=== PATIENT | female | born 1970 | race American Indian/Alaskan Native ===

== ENCOUNTER 2017-03-21 22:52 | Emergency (ER) | payer MEDICAID ==
[2017-03-21 23:32] VITALS: BP 137/82; TEMP 98.7; O2SAT 98
[2017-03-22] MEDS ORDERED: (Novolog Mix 70/30) Insulin Aspart/Insulin Aspar 100 units/ml SC ONE (00:11)
--- NOTE | 2017-03-22 00:14 | C.PDOC ---
History Of Present Illness A 46 year old female, with a history of Insulin Dependent Diabetes, presents to the emergency room for a request to administer Insulin. Patient reports that she was visiting her in the ICU and was going to administer her Novolog 70/30 20 units, but the needle broke and she did not have another needle to attach to the Novolog pen. Patient denies any fever, chills, abdominal pain, nausea, vomiting, diarrhea, or any other complaints. Time Seen by Provider: 03/21/17 23:44 Chief Complaint (Nursing): Medical Clearance History Per: Patient History/Exam Limitations: no limitations Onset/Duration Of Symptoms: Hrs Current Symptoms Are (Timing): Still Present Severity: None Recent travel outside of the [place]: No Past Medical History Reviewed: Historical Data, Nursing Documentation, Vital Signs Vital Signs: Last Vital Signs Temp 98.7 F 03/21/17 23:24 Pulse 88 03/22/17 00:05 Resp 18 03/22/17 00:05 BP 137/82 03/21/17 23:24 Pulse Ox 98 03/22/17 01:53 - Medical History PMH: Asthma, Gastritis Denies: HTN (denies) Family History: States: CAD, Diabetes, Hypertension - Social History Hx Tobacco Use: No Hx Alcohol Use: No Hx Substance Use: No - Immunization History Hx Tetanus Toxoid Vaccination: No Hx Influenza Vaccination: No Hx Pneumococcal Vaccination: No Review Of Systems Except As Marked, All Systems Reviewed And Found Negative. Constitutional: Positive for: Other (Requesting Insulin administration). Negative for: Fever, Chills Gastrointestinal: Negative for: Nausea, Vomiting, Abdominal Pain, Diarrhea Physical Exam - Physical Exam Appears: Well, Non-toxic Skin: Normal Color, Warm, Dry Head: Atraumatic, Normacephalic Eye(s): bilateral: Normal Inspection, PERRL, EOMI Neck: Normal ROM, No Midline Cervical Tenderness, No Paracervical Tenderness, Supple Cardiovascular: Rhythm Regular Respiratory: Normal Breath Sounds, No Rales, No Rhonchi, No Wheezing Gastrointestinal/Abdominal: Soft, No Tenderness, No Guarding, No Rebound Extremity: Normal ROM, No Tenderness Neurological/Psych: Oriented x3, Normal Speech, Normal Cognition ED Course And Treatment O2 Sat by Pulse Oximetry: 98 Medical Decision Making Medical Decision Making: Impression: 46 yo F with h/o IDDM, requesting for a dose of her insulin novolog 70/30 20 units, otherwise has no other complaints. FS 150. No acute findings on PE. Plan: Novolog 70/30 20 units SC given. Progress Notes: Follow up with pmd in 2 days. Return to the ER at any time for any new or worsening symptoms. Disposition - Disposition Disposition: HOME/ ROUTINE Disposition Time: 00:13 Condition: GOOD Additional Instructions: Follow up with pmd in 2 days. Return to the ER at any time for any new or worsening symptoms. Instructions: Insulin Aspart Protamine/Insulin Aspart (By injection) Print Language: TURKMEN - Clinical Impression Clinical Impression: DM (diabetes mellitus), type 2, Medication administered - PA / EMERGENCY MANAGEMENT DIRECTOR / Resident Statement MD/DO has reviewed & agrees with the documentation as recorded. - Scribe Statement The provider has reviewed the documentation as recorded by the Wei Lora Provider Scribe Attestation: All medical record entries made by the Cassibayad were at my direction and personally dictated by me. I have reviewed the chart and agree that the record accurately reflects my personal performance of the history, physical exam, medical decision making, and the department course for this patient. I have also personally directed, reviewed, and agree with the discharge instructions and disposition.
[2017-03-22] MEDS ORDERED: (Novolin 70/30) NPH/Regular 70/30 Units/ml 10 ml vial SC ONE (00:32)
[2017-03-22 00:43] VITALS: PULSE 88; RESP 18
== END 2017-03-22 00:42 | disposition home or self-care (01) ==
LOC: C.ER 22:52
DX: E11.9 Type 2 diabetes mellitus without complications (principal); Z79.4 Long term (current) use of insulin

== ENCOUNTER 2017-03-22 07:51 | Observation (INO) | payer MEDICAID ==
[2017-03-22 08:01] VITALS: BMI 37.1
[2017-03-22 08:02] VITALS: TEMP 98.4
--- NOTE | 2017-03-22 08:34 | C.PDOC ---
History Of Present Illness 46-year-old female, PMHx includes Gastritis and Asthma, presents to the emergency department with complaints of chest pain x1 hr. Patient states onset was "during a stressful event" while she was visiting someone in ICU. Pain is constant and localized. Denies other associated symptoms. Seen last night for Insulin dosing. Patient states she had a similar chest pain episode "many years ago." No known Hx of CAD. MIDSTERNAL CP X 1 HR. PS ONSET "DURING STRESSFUL EVENT" WHILE VISITING SOMEONE IN ICU. CONSTANT LOCALIZED. DENIES OTHER ASSOC SX. SEEN LAST NIGHT FOR INSULIN DOSING. PS SIM CP EPISODE "MANY YEARS AGO", NO KNOW HO CAD. EXAM MILD DIST LUNGS NEG ABD NEG PSYCH CRYING BUT CONSOLABLE, NO ACTIVE PSYCHOSIS, SI/SA MDM PT DOES NOT WISH ANY MEDS @ THIS TIME. RO ACS, ED OBS Chief Complaint (Nursing): Chest Pain Past Medical History Reviewed: Historical Data, Nursing Documentation, Vital Signs Vital Signs: Last Vital Signs Temp 98.4 F 03/22/17 08:01 Pulse 89 03/22/17 11:22 Resp 18 03/22/17 11:22 BP 109/55 L 03/22/17 11:22 Pulse Ox 92 L 03/22/17 11:22 - Medical History PMH: Asthma, Gastritis Denies: HTN (denies) Family History: States: CAD, Diabetes, Hypertension - Social History Hx Tobacco Use: No Hx Alcohol Use: No Hx Substance Use: No - Immunization History Hx Tetanus Toxoid Vaccination: Yes Hx Influenza Vaccination: No Hx Pneumococcal Vaccination: No Review Of Systems Except As Marked, All Systems Reviewed And Found Negative. Constitutional: Negative for: Fever, Chills Cardiovascular: Positive for: Chest Pain. Negative for: Palpitations, Orthopnea , Edema Respiratory: Negative for: Shortness of Breath Gastrointestinal: Negative for: Nausea, Vomiting Musculoskeletal: Negative for: Back Pain Skin: Negative for: Rash Neurological: Negative for: Weakness, Numbness, Headache, Dizziness Physical Exam - Physical Exam Appears: Non-toxic, No Acute Distress Skin: Warm, Dry, No Rash Head: Atraumatic, Normacephalic Eye(s): bilateral: Normal Inspection, PERRL Nose: Normal Oral Mucosa: Moist Lips: Normal Appearing Neck: Normal ROM Chest: Symmetrical Cardiovascular: Rhythm Regular Respiratory: Normal Breath Sounds, No Accessory Muscle Use Extremity: Normal ROM Neurological/Psych: Oriented x3, Normal Speech, Other (CRYING BUT CONSOLABLE, NO ACTIVE PSYCHOSIS, SI/SA) ED Course And Treatment - Laboratory Results Result Diagrams: 03/22/17 08:46 03/22/17 08:46 ECG: Interpreted By Me ECG Rhythm: Sinus Rhythm ECG Interpretation: Normal Rate From EC O2 Sat by Pulse Oximetry: 100 Pulse Ox Interpretation: Normal Progress - Data Reviewed Data Reviewed: Lab, Diagnostic imaging, EKG, Old records - Continuity of Care Discussed patient case with:: Patient Medical Decision Making Medical Decision Making: Impression Chest pain. Patient was offered medication and she is refusing at this time. Diff Dx (includes but not limited to) ACS Plan: * EKG * BMP, Trop I * CBC * Chest X-Ray * Nitro, Tylenol * Reassess and Disposition ED OBSERVATION Discharge: Yes Date of observation admission: 03/22/17 Time of observation admission: 08:15 - Observation admission statement Patient is being placed in observation because:: chest PAIN; STRESS REACTION - Goals of Observation Goals of observation are:: NEG ACS, SX IMPROVE - Progress Note Progress Note: 03/22/17 10:10 SX IMPROVED. PS CARDI[place] 5 [place] [facility] [place] REPEAT [place], CONT OBS. PT AGREES W PLAN 03/22/17 13:12 APPEARS COMFORTABLE ASYMPT. NAD VSS. TROP NEG X 2. ADVISED FU W PMD FOR CARDIAC FU. Disposition Counseled Patient/Family Regarding: Studies Performed, Diagnosis, Need For Followup - Disposition Disposition: HOME/ ROUTINE Disposition Time: 13:14 Condition: IMPROVED - Clinical Impression Clinical Impression: Chest pain, Stress reaction - Scribe Statement The provider has reviewed the documentation as recorded by the Wei Tolbert All medical record entries made by the Cassibayad were at my direction and personally dictated by me. I have reviewed the chart and agree that the record accurately reflects my personal performance of the history, physical exam, medical decision making, and the department course for this patient. I have also personally directed, reviewed, and agree with the discharge instructions and disposition.
[2017-03-22] MEDS ORDERED: Nitroglycerin 2% Ointment Foilpak UD TOP STA (08:39)
[2017-03-22] MEDS ORDERED: Nitroglycerin 2% Ointment Foilpak UD TOP ONE (08:49)
[2017-03-22] MEDS ORDERED: Aspirin 325 mg EC Tablets PO ONE (08:49)
[2017-03-22 08:53] LABS: BASO # 0.1 K/uL (0.0-0.2); BASO % 0.9 % (0.0-2.0); EOS % 0.4 % (0.0-4.0); HEMATOCRIT 34.5 % (34.0-47.0); LYMPH # 1.2 K/uL (1.0-4.3); MEAN CELL VOLUME 71.5 fL (81.0-99.0); MEAN CORPUSCULAR HEMOGLOBIN 22.7 pg (27.0-31.0); MEAN CORPUSCULAR HGB CONC 31.8 g/dL (33.0-37.0); MEAN PLATELET VOLUME 8.9 fL (7.2-11.7); MONO # 0.6 K/uL (0.0-0.8); MONO % 6.2 % (0.0-10.0); RED CELL DISTRIBUTION WIDTH 17.7 % (11.5-14.5); WHITE BLOOD COUNT 9.6 K/uL (4.8-10.8)
[2017-03-22 09:18] LABS: CHLORIDE 99 mmol/L (98-107); SODIUM 136 mmol/L (132-148)
[2017-03-22 09:19] LABS: POTASSIUM 3.6 mmol/L (3.6-5.2)
[2017-03-22 09:21] LABS: GFR AFRICAN-AMERICAN > 60
[2017-03-22 09:22] LABS: BLOOD UREA NITROGEN 10 mg/dL (7-17); CALCIUM 8.5 mg/dl (8.6-10.4); CARBON DIOXIDE 24 mmol/L (22-30); GLUCOSE,RANDOM 102 mg/dL (65-105)
--- NOTE | 2017-03-22 09:58 | RAD ---
HISTORY: chest pain COMPARISON: 04/18/2015 TECHNIQUE: Chest PA and lateral FINDINGS: LUNGS: No focal airspace opacity. PLEURA: No significant pleural effusion identified. No pneumothorax apparent. CARDIOVASCULAR: Normal. OSSEOUS STRUCTURES: No significant abnormalities. VISUALIZED UPPER ABDOMEN: Normal. OTHER FINDINGS: None. IMPRESSION: No focal airspace opacity.
[2017-03-22 13:21] VITALS: BP 112/68; PULSE 92; RESP 17; O2SAT 96
--- NOTE | 2017-03-25 11:52 | CARD ---
APPROVED REPORT EKG Measurement Heart [id number] <Conclusion> Normal sinus rhythm Low voltage QRS Poor R wave progression. It appears to be positional. Borderline EKG
== END 2017-03-22 13:15 | disposition home or self-care (01) ==
LOC: C.ER 07:51 → C.9OBSV 08:15
PROVIDERS: ADMIT Emergency Medicine; ATTEND Emergency Medicine
DX: R07.9 Chest pain, unspecified (principal); F43.9 Reaction to severe stress, unspecified
CPT/HCPCS: 71020; 80048; 82948; 84484; 85025; 99285; G0378

== ENCOUNTER 2017-04-22 09:28 | Emergency (ER) | payer MEDICAID ==
[2017-04-22 09:28] VITALS: BMI 37.1
[2017-04-22 09:50] VITALS: RESP 18
--- NOTE | 2017-04-22 10:34 | C.PDOC ---
History Of Present Illness 46 y/o F c history of childhood chicken pox p/w pain from the L sided abdomen to the L lower back that began yesterday. She reports the pain as burning, tingling, and itchy. She then notes that this morning, a rash broke out in the area of pain in the back. She denies fever, chills, vomiting, dysuria, dyspnea. Time Seen by Provider: 04/22/17 10:20 Chief Complaint (Nursing): Back Pain Past Medical History Vital Signs: Last Vital Signs Temp 98 F 04/22/17 09:46 Pulse 98 H 04/22/17 09:46 Resp 18 04/22/17 09:46 BP 130/78 04/22/17 09:46 Pulse Ox 96 04/22/17 09:46 - Medical History PMH: Asthma, Gastritis Denies: HTN (denies) Family History: States: CAD, Diabetes, Hypertension - Social History Hx Tobacco Use: No Hx Alcohol Use: No Hx Substance Use: No - Immunization History Hx Tetanus Toxoid Vaccination: Yes Hx Influenza Vaccination: No Hx Pneumococcal Vaccination: No Review Of Systems Except As Marked, All Systems Reviewed And Found Negative. Constitutional: Negative for: Fever Respiratory: Negative for: Shortness of Breath Physical Exam - Physical Exam Appears: Non-toxic Skin: Rash (clusters of vesicles on L sided back not crossing midline. No areas of rash on body.) Head: Normacephalic Respiratory: No Accessory Muscle Use Gastrointestinal/Abdominal: Soft, No Tenderness, No Distention, No Guarding, No Rebound Back: No CVA Tenderness Extremity: No Tenderness, No Swelling Pulses: Left Radial: Normal, Right Radial: Normal Neurological/Psych: Normal Speech, Normal Cognition ED Course And Treatment O2 Sat by Pulse Oximetry: 96 Medical Decision Making Medical Decision Making: History and physical consistent with herpes zoster infection. Will start on antivirals. Advised pain medication. Instructed to follow up with primary care physician for further monitoring and treatment. Instructed to return to the ER for any new rash in other dermatomes especially on face. No vesicles noted on nose, around eyes, or ears currently. Disposition - Disposition Referrals: Manpreet Gary, VICTORIANO, ORTHOPEDIC NURSE PRACTITIONER [Advanced Practice Nurse] - Disposition: HOME/ ROUTINE Disposition Time: 10:34 Condition: STABLE Prescriptions: Acyclovir [Zovirax] 800 mg PO 5XD #34 tab Ibuprofen [Motrin] 600 mg PO Q6 #25 tab Instructions: Shingles (ED) Forms: Work Excuse - Clinical Impression Clinical Impression: Shingles
[2017-04-22 10:43] LABS: RBC URINE 1 /hpf (0-3); URINE BILIRUBIN NEGATIVE (NEGATIVE); URINE BLOOD NEGATIVE (NEGATIVE); URINE COLOR Yellow (YELLOW); URINE GLUCOSE (UA) NORMAL (Normal); URINE KETONE NEGATIVE (NEGATIVE); URINE LEUKOCYTE ESTERASE NEG Leu/uL (Negative); URINE PROTEIN 1+ mg/dL (NEGATIVE); URINE UROBILINOGEN NORMAL mg/dL (0.2-1.0); WBC URINE 1 /hpf (0-5)
[2017-04-22 11:14] VITALS: BP 131/79; PULSE 95; TEMP 97.7; O2SAT 98
== END 2017-04-22 11:14 | disposition home or self-care (01) ==
LOC: C.ER 09:28
DX: B02.9 Zoster without complications (principal)
CPT/HCPCS: 81001; 84703; 96372; 99284; J1885

== ENCOUNTER 2017-06-28 10:27 | Observation (INO) | payer MEDICAID ==
[2017-06-28 10:28] VITALS: BMI 37.1
[2017-06-28 11:16] LABS: RBC URINE 1 /hpf (0-3); URINE BILIRUBIN NEGATIVE (NEGATIVE); URINE BLOOD 2+ (NEGATIVE); URINE COLOR Yellow (YELLOW); URINE GLUCOSE (UA) NORMAL (Normal); URINE KETONE NEGATIVE (NEGATIVE); URINE LEUKOCYTE ESTERASE NEG Leu/uL (Negative); URINE PROTEIN 1+ mg/dL (NEGATIVE); URINE UROBILINOGEN NORMAL mg/dL (0.2-1.0); WBC URINE 1 /hpf (0-5)
[2017-06-28 11:47] LABS: BASO # 0.1 K/uL (0.0-0.2); EOS # 0.2 K/uL (0.0-0.7); EOS % 2.5 % (0.0-4.0); HEMATOCRIT 34.9 % (34.0-47.0); LYMPH # 1.1 K/uL (1.0-4.3); LYMPH % 16.6 % (20.0-40.0); MEAN CORPUSCULAR HEMOGLOBIN 23.1 pg (27.0-31.0); MEAN PLATELET VOLUME 8.4 fL (7.2-11.7); MONO # 0.5 K/uL (0.0-0.8); MONO % 6.9 % (0.0-10.0); RED CELL DISTRIBUTION WIDTH 18.4 % (11.5-14.5); WHITE BLOOD COUNT 6.5 K/uL (4.8-10.8)
[2017-06-28 11:48] LABS: MEAN CELL VOLUME 74.6 fL (81.0-99.0)
[2017-06-28 12:00] LABS: CHLORIDE 97 mmol/L (98-107); SODIUM 138 mmol/L (132-148)
[2017-06-28 12:01] LABS: POTASSIUM 3.9 mmol/L (3.6-5.2)
[2017-06-28 12:03] LABS: ALB/GLOB RATIO 1.1 (1.0-2.1); ALKALINE PHOSPHATASE 76 U/L (38-126); ALT/SGPT 29 U/L (9-52); AST/SGOT 21 U/L (14-36); BILIRUBIN,TOTAL 0.4 mg/dL (0.2-1.3); BLOOD UREA NITROGEN 9 mg/dL (7-17); CARBON DIOXIDE 27 mmol/L (22-30); GFR AFRICAN-AMERICAN > 60
[2017-06-28 12:04] LABS: CALCIUM 8.1 mg/dl (8.6-10.4); GLUCOSE,RANDOM 142 mg/dL (65-105)
--- NOTE | 2017-06-28 12:05 | C.PDOC ---
History Of Present Illness 47 y/o female with dm, recent shingles, c/o left sided flank pain from waking this morning, that feels similar to pain she had recently with shingles. pt also sts she felt dizzy, described as things spinning in room that feels worse when lying down, but better when sitting up. no prior hx of vertigo. pt with diffuse frontal headache, no ear pain. pt reports intermittent chest pressure , had some earlier today, but none at moment; pt denies sob, fever, chills, cough, blurred vision. nausea and vomiting. pt sts she just doesn't feel right. Time Seen by Provider: 06/28/17 11:14 Chief Complaint (Nursing): Headache History Per: Patient History/Exam Limitations: no limitations Onset/Duration Of Symptoms: Hrs Current Symptoms Are (Timing): Still Present Recent travel outside of the [place]: No Additional History Per: Patient Past Medical History Reviewed: Historical Data, Nursing Documentation, Vital Signs Vital Signs: Last Vital Signs Temp 98.4 F 06/28/17 14:00 Pulse 85 06/28/17 14:00 Resp 16 06/28/17 14:00 BP 112/72 06/28/17 14:00 Pulse Ox 99 06/28/17 15:45 - Medical History PMH: Asthma, Diabetes, Gastritis, HTN Family History: States: CAD, Diabetes, Hypertension - Social History Hx Tobacco Use: No Hx Alcohol Use: No Hx Substance Use: No - Immunization History Hx Tetanus Toxoid Vaccination: Yes Hx Influenza Vaccination: No Hx Pneumococcal Vaccination: No Review Of Systems Constitutional: Negative for: Fever, Chills Eyes: Negative for: Vision Change ENT: Negative for: Ear Pain Cardiovascular: Positive for: Chest Pain (chest pressure). Negative for: Palpitations Respiratory: Negative for: Cough, Shortness of Breath Gastrointestinal: Negative for: Nausea, Vomiting Musculoskeletal: Positive for: Back Pain (left flank) Neurological: Positive for: Headache, Dizziness Physical Exam - Physical Exam Appears: Well, Non-toxic, No Acute Distress Skin: Normal Color, Warm, Dry Head: Atraumatic, Normacephalic Eye(s): bilateral: Normal Inspection, Other (no nystagmus) Ear(s): Bilateral: Normal Neck: Normal ROM, Supple Chest: Symmetrical Cardiovascular: Rhythm Regular, No Murmur Respiratory: Normal Breath Sounds, No Accessory Muscle Use, No Rales, No Rhonchi , No Wheezing Gastrointestinal/Abdominal: Soft, No Tenderness Back: Normal Inspection Extremity: Normal ROM Neurological/Psych: Oriented x3, Normal Speech, Normal Cognition, Normal Cranial Nerves, Normal Motor, Normal Sensation, Other (neuro intact) Gait: Unsteady ED Course And Treatment - Laboratory Results Result Diagrams: 06/28/17 11:40 06/28/17 11:40 Urine POC: Negative ECG Rhythm: Sinus Rhythm (NSR 87 bpm. Left axis deviation ) Interpretation Of ECG: nsr, left axis deviation,m possible anterolateral infarct , age undetermined. Rate From EC O2 Sat by Pulse Oximetry: 99 (RA) Pulse Ox Interpretation: Normal - CT Scan/US Head CT Other Rad Studies (CT/US): Read By Radiologist, Radiology Report Reviewed CT/US Interpretation: FINDINGS: HEMORRHAGE: No intracranial hemorrhage. BRAIN : No mass effect or edema. Bilateral basal ganglia calcifications. No atrophy or chronic microvascular ischemic changes.Please note that MRI with diffusion imaging is more sensitive in the detection of acute ischemic event. VENTRICLES : No hydrocephalus. CALVARIUM: Unremarkable. PARANASAL SINUSES: Unremarkable as visualized. No significant inflammatory changes. MASTOID AIR CELLS: Unremarkable as visualized. No inflammatory changes. OTHER FINDINGS: None. IMPRESSION: No acute intracranial pathology identified. Progress Note: EKG, head CT, blood work, urinalysis ordered and reviewed. Pt was given Antivert, and Tylenol. Reevaluation Time: 15:43 (pt still not feeling well, says she feels like osmething is wrong; will be admotted for persistent vertigo. ) Reassessment Condition: Unchanged Medical Decision Making Medical Decision Making: pt feeling somewhat better after meclizine, still c/o headaceh. motrin ordered. will re-eval. Disposition Discussed With : Tyshawn Justice Doctor Will See Patient In The: Hospital - Disposition Disposition Time: 15:45 Condition: STABLE Forms: [facility] (Omani) - Clinical Impression Clinical Impression: Vertigo, Headache - PA / WOOD SETTER / Resident Statement MD/DO has reviewed & agrees with the documentation as recorded. - Scribe Statement The provider has reviewed the documentation as recorded by the Cassibe Jerzy Rangel All medical record entries made by the Scribe were at my direction and personally dictated by me. I have reviewed the chart and agree that the record accurately reflects my personal performance of the history, physical exam, medical decision making, and the department course for this patient. I have also personally directed, reviewed, and agree with the discharge instructions and disposition. Decision To Admit - Pt Status Changed To: Hospital Disposition Of: Observation - . Bed Request Type: Regular Admitting Physician: Tyshawn Justice Patient Diagnosis: Vertigo, Headache
--- NOTE | 2017-06-28 12:33 | CT ---
PROCEDURE: CT HEAD WITHOUT CONTRAST. HISTORY: headache and dizzy COMPARISON: None available. TECHNIQUE: Axial computed tomography images were obtained through the head/brain without intravenous contrast. Radiation dose: Total exam DLP = 906.00 mGy-cm. This CT exam was performed using one or more of the following dose reduction techniques: Automated exposure control, adjustment of the mA and/or kV according to patient size, and/or use of iterative reconstruction technique. FINDINGS: HEMORRHAGE: No intracranial hemorrhage. BRAIN: No mass effect or edema. Bilateral basal ganglia calcifications. No atrophy or chronic microvascular ischemic changes.Please note that MRI with diffusion imaging is more sensitive in the detection of acute ischemic event. VENTRICLES: No hydrocephalus. CALVARIUM: Unremarkable. PARANASAL SINUSES: Unremarkable as visualized. No significant inflammatory changes. MASTOID AIR CELLS: Unremarkable as visualized. No inflammatory changes. OTHER FINDINGS: None. IMPRESSION: No acute intracranial pathology identified.
[2017-06-28] MEDS ORDERED: Sodium Chloride 0.9% 500 ML IV ONE ×2 (13:50→14:01)
[2017-06-28 19:53] VITALS: RESP 20
[2017-06-28] MEDS: (Novolog Mix 70/30) Insulin Aspart/Insulin Aspar 100 units/ml SC SCH (20:06)
[2017-06-28] MEDS: (Novolog) Insulin Aspart, Recombinant 100 u/ml 10 ml vial SC SCH (22:20)
--- NOTE | 2017-06-28 23:57 | CP.PCM.HP ---
History of Present Illness - History of Present Illness History of Present Illness: CC: dizziness HPI: 47 y/o morbidly female with dm on insulin, recent shingles, c/o left sided flank pain from waking this morning, that feels similar to pain she had recently with shingles. pt also sts she felt dizzy, described as things spinning in room that feels worse when lying down, but better when sitting up. no prior hx of vertigo. pt with diffuse frontal headache, no ear pain. pt reports intermittent chest pressure, had some earlier today, but none at moment ; pt denies sob, fever, chills, cough, blurred vision. nausea and vomiting. pt sts she just doesn't feel right. Present on Admission - Present on Admission Any Indicators Present on Admission: Yes Review of Systems - Review of Systems Systems not reviewed;Unavailable: Acuity of Condition - Constitutional Constitutional: Fatigue, Lethargy - EENT Ears: Disequilibrium, Dizziness Nose/Mouth/Throat: absent: As Per HPI, Epistaxis, Nasal Congestion, Nasal Discharge, Nasal Obstruction, Nasal Trauma, Nose Pain, Post Nasal Drip, Sinus Pain, Sinus Pressure, Bleeding Gums, Change in Voice, Dental Pain, Dry Mouth, Dysphagia, Halitosis, Hoarsness, Lip Swelling, Mouth Lesions, Mouth Pain, Odynophagia, Sore Throat, Throat Swelling, Tongue Swelling, Facial Pain, Neck Pain, Neck Mass, Other - Cardiovascular Cardiovascular: absent: As Per HPI, Acrocyanosis, Chest Pain, Chest Pain at Rest , Chest Pain with Activity, Claudication, Diaphoresis, Dyspnea, Dyspnea on Exertion, Edema, Irregular Heart Rhythm, Pain Radiating to Arm/Neck/Jaw, Leg Edema, Leg Ulcers, Lightheadedness, Orthopnea, Palpitations, Paroxysmal Nocturnal Dyspnea, Pedal Edema, Radiating Pain, Rapid Heart Rate, Slow Heart Rate, Syncope, Other - Respiratory Respiratory: absent: As Per HPI, Cough, Dyspnea, Hemoptysis, Dyspnea on Exertion , Wheezing, Snoring, Stridor, Pain on Inspiration, Chest Congestion, Excessive Mucous Production, Change in Mucous Color, Pain with Coughing, Other - Gastrointestinal Gastrointestinal: absent: As Per HPI, Abdominal Pain, Belching, Bloating, Change in Bowel Habits, Change in Stool Character, Coffee Ground Emesis, Constipation, Cramping, Diarrhea, Dyspepsia, Dysphagia, Early Satiety, Excessive Flatus, Fecal Incontinence, Heartburn, Hematemesis, Hematochezia, Loose Stools, Melena, Nausea, Odynophagia, Temesmus, Vomiting, Other - Genitourinary Genitourinary: absent: As Per HPI, Change in Urinary Stream, Difficulty Urinating, Dysuria, Flank Pain, Hematuria, Pyuria, Nocturia, Urinary Incontinence, Urinary Frequency, Urinary Hesitance, Urinary Urgency, Voiding Freq/Small Amts, Freq UTI, Hx Renal/Bladder Calculi, Hx /Renal Surgery, Bladder Distension, Other Past Patient History - Infectious Disease Hx of Infectious Diseases: None - Past Medical History & Family History Past Medical History?: Yes - Past Social History Smoking Status: Former Smoker - CARDIAC Hx Cardiac Disorders: No - PULMONARY Hx Respiratory Disorders: Yes Hx Asthma: Yes - NEUROLOGICAL Hx Neurological Disorder: Yes Hx Dizziness: Yes - HEENT Hx HEENT Problems: Yes Other/Comment: left eye retinal problem - RENAL Hx Chronic Kidney Disease: No - ENDOCRINE/METABOLIC Hx Endocrine Disorders: Yes Hx Diabetes Mellitus Type 1: Yes - HEMATOLOGICAL/ONCOLOGICAL Hx Blood Disorders: Yes Hx Blood Transfusions: Yes Hx Blood Transfusion Reaction: No Hx Shingles: Yes - INTEGUMENTARY Hx Dermatological Problems: No - MUSCULOSKELETAL/RHEUMATOLOGICAL Hx Falls: No - GASTROINTESTINAL Hx Gastrointestinal Disorders: Yes Hx Gastritis: Yes - GENITOURINARY/GYNECOLOGICAL Hx Genitourinary Disorders: No - PSYCHIATRIC Hx Substance Use: No - SURGICAL HISTORY Hx Surgeries: Yes Other/Comment: ectopic with surgery, left eye surgery - ANESTHESIA Hx Anesthesia: Yes Hx Anesthesia Reactions: No Hx Malignant Hyperthermia: No Meds Allergies/Adverse Reactions: Allergies Allergy/AdvReac Type Severity Reaction Status Date / Time Penicillins Allergy RASH Verified 03/22/17 07:59 Physical Exam - Constitutional Appears: No Acute Distress - Head Exam Head Exam: ATRAUMATIC, NORMAL INSPECTION, NORMOCEPHALIC - Eye Exam Eye Exam: EOMI, Normal appearance, PERRL. absent: Conjunctival injection, Nystagmus, Periorbital swelling, Periorbital tenderness, Scleral icterus Pupil Exam: NORMAL ACCOMODATION, PERRL - ENT Exam ENT Exam: Mucous Membranes Moist, Normal Exam - Respiratory Exam Respiratory Exam: Clear to Auscultation Bilateral, NORMAL BREATHING PATTERN - Cardiovascular Exam Cardiovascular Exam: REGULAR RHYTHM - GI/Abdominal Exam GI & Abdominal Exam: Normal Bowel Sounds, Soft. absent: Tenderness Results - Vital Signs Recent Vital Signs: Last Vital Signs Temp 98 F 06/28/17 18:45 Pulse 81 06/28/17 18:45 Resp 20 06/28/17 18:45 BP 110/67 06/28/17 18:45 Pulse Ox 96 06/28/17 18:45 - Labs Result Diagrams: 06/28/17 11:40 06/28/17 11:40 Labs: Laboratory Results - last 24 hr 06/28/17 06/28/17 18:24 21:32 POC Glucose (mg/dL) 146 H 181 H Assessment & Plan (1) Dizziness and giddiness Status: Acute (2) Vertigo Assessment and Plan: most likeley BPV[facility] neuro eval Status: Acute
[2017-06-29] MEDS: (Novolog) Insulin Aspart, Recombinant 100 u/ml 10 ml vial SC SCH ×4 (07:54→22:24)
[2017-06-29 08:08] LABS: CHOLESTEROL 178 mg/dL (0-199)
[2017-06-29] MEDS: (Novolog Mix 70/30) Insulin Aspart/Insulin Aspar 100 units/ml SC SCH ×2 (11:50→18:06)
--- NOTE | 2017-06-29 11:59 | MRI ---
PROCEDURE: MRI BRAIN WITHOUT CONTRAST HISTORY: CVA COMPARISON: Noncontrast head CT from 06/28/2017 TECHNIQUE: Multiplanar, multisequence MR images of the brain were obtained without intravenous contrast enhancement. FINDINGS: HEMORRHAGE: None DWI: No evidence of an acute or early subacute infarction. BRAIN PARENCHYMA: Nuñez-white matter differentiation is preserved. There is no mass, mass effect or abnormal extra-axial fluid collection. There is no territorial infarction. The midline sagittal structures are normal. VENTRICLES: The ventricles are normal in size, shape and configuration. CRANIUM: There is normal bone marrow signal pattern. ORBITS: Grossly unremarkable. PARANASAL SINUSES/MASTOIDS: Predominantly clear. VASCULAR SYSTEM: There are normal signal voids in the larger intracranial arteries. OTHER FINDINGS: There is severe adenoidal hypertrophy with narrowing of the nasopharyngeal airway IMPRESSION: No acute intracranial abnormality. Specifically, no evidence of acute infarction. Severe adenoid hypertrophy with narrowing of the nasopharyngeal airway. Findings could be related to recent infection however the other differential considerations include adenoidal hyperplasia and neoplasm such as lymphoma. Clinical correlation and follow-up is advised.
--- NOTE | 2017-06-29 22:47 | CP.PCM.PN ---
Subjective - Date & Time of Evaluation Date of Evaluation: 06/29/17 Time of Evaluation: 20:40 - Subjective Subjective: Pt still c/o dizziness, MRI of brain is neg most likelly dizzines due to BPV Objective - Vital Signs/Intake and Output Vital Signs (last 24 hours): Temp Pulse Resp BP Pulse Ox 97.9 F 81 20 116/78 98 06/29/17 15:45 06/29/17 15:45 06/29/17 15:45 06/29/17 15:45 06/29/17 15:45 - Medications Medications: Current Medications Famotidine (Pepcid) 20 mg PO BID [facility] Last Admin: 06/29/17 18:10 Dose: 20 mg Insulin Aspart (Novolog Mix 70/30 (70/30 Units/Ml)) 30 units SC QPM [facility] Last Admin: 06/29/17 18:06 Dose: 30 units Insulin Aspart (Novolog Mix 70/30 (70/30 Units/Ml)) 40 units SC QAM [facility] Last Admin: 06/29/17 11:50 Dose: Not Given Insulin Aspart (Novolog) 0 unit SC ACHS [facility] PRN Reason: Protocol Last Admin: 06/29/17 22:24 Dose: Not Given Meclizine HCl (Antivert) 25 mg PO Q8 [facility] Last Admin: 06/29/17 22:36 Dose: 25 mg Metformin HCl (Glucophage) 1,000 mg PO BID [facility] Last Admin: 06/29/17 18:07 Dose: 1,000 mg Rosuvastatin Calcium (Crestor) 20 mg PO HS [facility] Last Admin: 06/29/17 22:36 Dose: 20 mg - Constitutional Appears: No Acute Distress - Head Exam Head Exam: ATRAUMATIC, NORMAL INSPECTION, NORMOCEPHALIC - Eye Exam Eye Exam: EOMI, Normal appearance, PERRL Pupil Exam: NORMAL ACCOMODATION, PERRL - Respiratory Exam Respiratory Exam: Clear to Ausculation Bilateral, NORMAL BREATHING PATTERN - Cardiovascular Exam Cardiovascular Exam: REGULAR RHYTHM, +S1, +S2. absent: Murmur - GI/Abdominal Exam GI & Abdominal Exam: Soft, Normal Bowel Sounds. absent: Tenderness Assessment and Plan (1) Dizziness and giddiness Status: Acute (2) Vertigo Status: Acute
[2017-06-30] MEDS: (Novolog) Insulin Aspart, Recombinant 100 u/ml 10 ml vial SC SCH ×2 (07:30→12:00)
[2017-06-30 08:36] VITALS: BP 118/76; PULSE 87; TEMP 97.9; O2SAT 99
[2017-06-30] MEDS: (Novolog Mix 70/30) Insulin Aspart/Insulin Aspar 100 units/ml SC SCH (09:17)
--- NOTE | 2017-06-30 22:02 | CP.PCM.DIS ---
Provider - Provider Date of Admission: 06/28/17 15:44 Attending physician: Tyshawn Justice MD Time Spent in preparation of Discharge (in minutes): 45 Diagnosis - Discharge Diagnosis (1) Dizziness and giddiness Status: Acute (2) Vertigo Status: Acute Hospital Course - Lab Results Lab Results: Most Recent Lab Values WBC 6.5 K/uL (4.8-10.8) 06/28/17 11:40 RBC 4.68 Mil/uL (3.80-5.20) 06/28/17 11:40 Hgb 10.8 g/dL (11.0-16.0) L 06/28/17 11:40 Hct 34.9 % (34.0-47.0) 06/28/17 11:40 MCV 74.6 fL (81.0-99.0) L D 06/28/17 11:40 MCH 23.1 pg (27.0-31.0) L 06/28/17 11:40 MCHC 31.0 g/dL (33.0-37.0) L 06/28/17 11:40 RDW 18.4 % (11.5-14.5) H 06/28/17 11:40 Plt Count 387 K/uL (130-400) 06/28/17 11:40 MPV 8.4 fL (7.2-11.7) 06/28/17 11:40 Neut % (Auto) 73.0 % (50.0-75.0) 06/28/17 11:40 Lymph % (Auto) 16.6 % (20.0-40.0) L 06/28/17 11:40 Motley % (Auto) 6.9 % (0.0-10.0) 06/28/17 11:40 Eos % (Auto) 2.5 % (0.0-4.0) 06/28/17 11:40 Baso % (Auto) 1.0 % (0.0-2.0) 06/28/17 11:40 Neut # 4.8 K/uL (1.8-7.0) 06/28/17 11:40 Lymph # 1.1 K/uL (1.0-4.3) 06/28/17 11:40 Motley # 0.5 K/uL (0.0-0.8) 06/28/17 11:40 Eos # 0.2 K/uL (0.0-0.7) 06/28/17 11:40 Baso # 0.1 K/uL (0.0-0.2) 06/28/17 11:40 Sodium 138 mmol/L (132-148) 06/28/17 11:40 Potassium 3.9 mmol/L (3.6-5.2) 06/28/17 11:40 Chloride 97 mmol/L (98-107) L 06/28/17 11:40 Carbon Dioxide 27 mmol/L (22-30) 06/28/17 11:40 Anion Gap 18 (10-20) 06/28/17 11:40 BUN 9 mg/dL (7-17) 06/28/17 11:40 Creatinine 0.6 MG/DL (0.7-1.2) L 06/28/17 11:40 Est GFR ( Amer) > 60 06/28/17 11:40 Est GFR (Non-Af Amer) > 60 06/28/17 11:40 POC Glucose (mg/dL) 97 mg/dL (65-110) 06/30/17 12:49 Random Glucose 142 mg/dL (65-105) H 06/28/17 11:40 Calcium 8.1 mg/dl (8.6-10.4) L 06/28/17 11:40 Total Bilirubin 0.4 mg/dL (0.2-1.3) 06/28/17 11:40 AST 21 U/L (14-36) 06/28/17 11:40 ALT 29 U/L (9-52) 06/28/17 11:40 Alkaline Phosphatase 76 U/L (38-126) 06/28/17 11:40 Troponin I < 0.0120 ng/mL (0.00-0.120) 06/28/17 11:40 Total Protein 7.0 g/dL (6.3-8.3) 06/28/17 11:40 Albumin 3.6 g/dL (3.5-5.0) 06/28/17 11:40 Globulin 3.3 gm/dL (2.2-3.9) 06/28/17 11:40 Albumin/Globulin Ratio 1.1 (1.0-2.1) 06/28/17 11:40 Triglycerides 96 mg/dL (0-149) D 06/29/17 07: Cholesterol 178 mg/dL (0-199) 06/29/17 07: LDL Cholesterol Direct 97 mg/dL (0-129) 06/29/17 07: HDL Cholesterol 49 mg/dL (30-70) 06/29/17 07:29 Urine Color Yellow (YELLOW) 06/28/17 10:58 Urine Clarity Clear (Clear) 06/28/17 10:58 Urine pH 5.0 (5.0-8.0) 06/28/17 10:58 Ur Specific [place] 1.023 (1.003-1.030) 06/28/17 10:58 Urine Protein 1+ mg/dL (NEGATIVE) H 06/28/17 10:58 Urine Glucose (UA) Normal mg/dL (Normal) 06/28/17 10:58 Urine Ketones Negative mg/dL (NEGATIVE) 06/28/17 10:58 Urine Blood 2+ (NEGATIVE) H 06/28/17 10:58 Urine Nitrate Negative (NEGATIVE) 06/28/17 10:58 Urine Bilirubin Negative (NEGATIVE) 06/28/17 10:58 Urine Urobilinogen Normal mg/dL (0.2-1.0) 06/28/17 10:58 Ur Leukocyte Esterase Neg Bradley/uL (Negative) 06/28/17 10:58 Urine WBC (Auto) 1 /hpf (0-5) 06/28/17 10:58 Urine RBC (Auto) 1 /hpf (0-3) 06/28/17 10:58 Ur Squamous Epith Cells 2 /hpf (0-5) 06/28/17 10:58 Urine HCG, Qual Negative (NEGATIVE) 06/28/17 10:58 Discharge Exam - Head Exam Head Exam: ATRAUMATIC, NORMAL INSPECTION, NORMOCEPHALIC Discharge Plan - Discharge Medications Prescriptions: Meclizine [Meclizine*] 25 mg PO Q8 10 Days MDD 3 - Follow Up Plan Condition: STABLE Disposition: HOME/ ROUTINE Instructions: Vertigo (DC)
--- NOTE | 2017-07-01 14:44 | CARD ---
APPROVED REPORT EKG Measurement Heart [id number] <Conclusion> Normal sinus rhythm Left axis deviation Possible Anterolateral infarct, age undetermined Abnormal ECG
--- NOTE | 2017-07-01 14:46 | VASCLAB ---
PROCEDURE: HISTORY: .atherosclerosis, Dizziness, Unsteady gait COMPARISON: None available. TECHNIQUE: Grayscale and duplex Doppler evaluation of the cervical carotid and vertebral arteries were performed. The common carotid, carotid bifurcations and cervical Internal Carotid Artery (ICA) and proximal External Carotid Artery (ECA) were evaluated. The vertebral arteries were evaluated for gross patency and flow direction. Report prepared by Bandar Martinez, T FINDINGS: RIGHT CAROTID ARTERIES: 1. Common Carotid Artery: No significant focal plaque formation of the right common carotid artery. Maximum Peak Systolic velocity: 66.1 cm/sec: End-diastolic velocity 12.7 cm/sec. 2. Carotid Bifurcation: plaque formation. Maximum Peak Systolic velocity: 49.0 cm/sec: End-diastolic velocity 10.6 cm/sec. 3. Internal Carotid Artery: Plaque description: 3.1. Proximal Segment: Peak systolic velocity 52.0 cm/sec: End-diastolic velocity 9.7 cm/sec - % stenosis 3.2. Middle Segment: Peak systolic velocity 47.8 cm/sec: End-diastolic velocity 8.5 cm/sec - % stenosis 3.3. Distal Segment: Peak systolic velocity 37.3 cm/sec: End-diastolic velocity 7.4 cm/sec - % stenosis 4. External Carotid Artery: No significant focal plaque formation. Peak systolic velocity 66.3 cm/sec 5. ICA/CCA Ratio: 0.9 LEFT CAROTID ARTERIES: 1. Common Carotid Artery: No significant focal plaque formation of the left common carotid artery. Maximum Peak Systolic velocity: 72.1 cm/sec: End-diastolic velocity 18.6 cm/sec. 2. Carotid Bifurcation: plaque formation. Maximum Peak Systolic velocity: 73.5 cm/sec: End-diastolic velocity 18.6 cm/sec. 3. Internal Carotid Artery: Plaque description: 3.1. Proximal Segment: Peak systolic velocity 59.1 cm/sec: End-diastolic velocity 18.6 cm/sec - % stenosis 3.2. Middle Segment: Peak systolic velocity 60.5 cm/sec: End-diastolic velocity 23.0 cm/sec - % stenosis 3.3. Distal Segment: Peak systolic velocity 70.6 cm/sec: End-diastolic velocity 26.5 cm/sec - % stenosis 4. External Carotid Artery: No significant focal plaque formation. Peak systolic velocity 63.4 cm/sec 5. ICA/CCA Ratio: 1.0 VERTEBRAL ARTERIES: 1. Right Vertebral Artery: The right vertebral artery flow direction is antegrade. 2. Left Vertebral Artery: The left vertebral artery flow direction is antegrade. OTHER FINDINGS: 1. Right Brachial Blood pressure: mmHg. 2. Left Brachial Blood pressure: mmHg. IMPRESSION: RIGHT: Duplex scan does not suggest hemodynamically significant stenosis of the right extracranial carotid arteries. LEFT: Duplex scan does not suggest hemodynamically significant stenosis of the left extracranial carotid arteries.
== END 2017-06-30 16:00 | disposition home or self-care (01) ==
LOC: C.ER 10:27 → C.9E 15:44 → C.6T 17:20
PROVIDERS: ADMIT Internal Medicine; ATTEND Internal Medicine
DX: R51 Headache (principal); I10 Essential (primary) hypertension; J45.909 Unspecified asthma, uncomplicated; Z87.891 Personal history of nicotine dependence; R42 Dizziness and giddiness
CPT/HCPCS: 36415; 70450; 70551; 80053; 80061; 81001; 82948; 83036; 84484; 84703; 85025; 93005; 93880; 99285; G0378; J7040

== ENCOUNTER 2017-11-17 19:26 | Emergency (ER) | payer MEDICAID ==
[2017-11-17 19:26] VITALS: BMI 37.1
[2017-11-17 19:35] VITALS: BP 135/78; PULSE 98; RESP 18; TEMP 97.9; O2SAT 98
--- NOTE | 2017-11-17 19:39 | C.PDOC ---
History Of Present Illness Rivka Batres is a 47 y/o female with PMHx of diabetes, who presents for evaluation of left big toe bleeding and some discharge, noted earlier today after removing nail swedish. Otherwise patient denies known trauma or injury. No fever, chills. Pt states concern because she is diabetic, wants to make sure there is no infection. Time Seen by Provider: 11/17/17 19:28 Chief Complaint (Nursing): Lower Extremity Problem/Injury History Per: Patient History/Exam Limitations: no limitations Onset/Duration Of Symptoms: Days (x 1) Current Symptoms Are (Timing): Still Present Past Medical History Reviewed: Historical Data, Nursing Documentation, Vital Signs Vital Signs: Last Vital Signs Temp 97.9 F 11/17/17 20:03 Pulse 98 H 11/17/17 20:03 Resp 18 11/17/17 20:03 BP 135/78 11/17/17 20:03 Pulse Ox 98 11/17/17 20:05 - Medical History PMH: Asthma, Diabetes, Gastritis, HTN Denies: Chronic Kidney Disease Family History: States: CAD, Diabetes, Hypertension - Social History Hx Tobacco Use: No Hx Alcohol Use: Yes (SOCIALLY) Hx Substance Use: No - Immunization History Hx Tetanus Toxoid Vaccination: Yes Hx Influenza Vaccination: No Hx Pneumococcal Vaccination: No Review Of Systems Constitutional: Negative for: Fever, Chills Skin: Positive for: Other (bleeding and discharge from left big toe) Physical Exam - Physical Exam Appears: Well, Non-toxic, No Acute Distress Skin: Normal Color, Warm, No Rash, Other (LEFT BIG TOE:exam c/w onychomicosis of left foot, no cellulitis, no discharges noted from toe, no proximal streaking.) Extremity: Normal ROM (Left foot), No Tenderness, No Calf Tenderness, Capillary Refill (less than 2sec to Left foot), No Deformity, No Swelling Neurological/Psych: Oriented x3, Normal Speech, Normal Motor, Normal Sensation, Normal Reflexes ED Course And Treatment O2 Sat by Pulse Oximetry: 98 (RA) Pulse Ox Interpretation: Normal Progress Note: On re-eval, pt is afebrile, hemnodynamicaly stable. Non-toxic. Ambulatory in Ed with stable gait. Left foot; exam c/w onychomicosis, no evidence of cellulitis or open wound. FAROM, no neurovascular deficits. Pt advised to foot care. ref. to f/u with PMD, Derm and Fisheries Manager in 2-3 days for re-evaluation and further treatment. return to ED if any worsening or new changes. Disposition Counseled Patient/Family Regarding: Diagnosis, Need For Followup, Rx Given - Disposition Referrals: Manpreet Gary, VICTORIANO, MARKETING COMMUNICATIONS SPECIALIST [Advanced Practice Nurse] - [facility] [Outside] Podiatry Clinic [Outside] Disposition: HOME/ ROUTINE Disposition Time: 19:36 Condition: STABLE Additional Instructions: APPLY CREAM TO WOUND AREA DAILY FOLLOW UP WITH PMD, DERMATOLOGY IN 2-3 DAYS FOR RE-EVALUATION. RETURN TO ED IF ANY WORSENING OR NEW CHANGES. Prescriptions: Mupirocin 2% Cream [Bactroban Cream] 1 applic EXT BID #1 tube Instructions: Skin Yeast Infection (ED) Forms: [employer] (Arabic) - Clinical Impression Clinical Impression: Onychomycosis - PA / ENVIRONMENTAL SERVICES TECHNICIAN / Resident Statement MD/DO has reviewed & agrees with the documentation as recorded. - Scribe Statement The provider has reviewed the documentation as recorded by the Scribe (Shannon Phillips) All medical record entries made by the Scribe were at my direction and personally dictated by me. I have reviewed the chart and agree that the record accurately reflects my personal performance of the history, physical exam, medical decision making, and the department course for this patient. I have also personally directed, reviewed, and agree with the discharge instructions and disposition.
== END 2017-11-17 20:03 | disposition home or self-care (01) ==
LOC: C.ER 19:26
DX: B35.1 Tinea unguium (principal)

== ENCOUNTER 2017-12-01 08:07 | Emergency (ER) | payer MEDICAID ==
[2017-12-01 08:07] VITALS: BMI 37.1
--- NOTE | 2017-12-01 09:25 | C.PDOC ---
History Of Present Illness 47 year old female, with past medical history of fibroids, presents to ED for evaluation of irregular vaginal bleeding this morning. Notes that her last normal menstrual period was 1 week ago. Pt states that this morning she began to have heavy vaginal bleeding with clots described as "like the start of a period". Notes having regular menstrual periods. Pt states she has been under a lot of stress for the past few days due to holidays. Otherwise, denies any abdominal pain, nausea, vomiting, dizziness, lightheadedness, or headache. Time Seen by Provider: 12/01/17 08:51 Chief Complaint (Nursing): Female Genitourinary History Per: Patient History/Exam Limitations: no limitations Onset/Duration Of Symptoms: Hrs Current Symptoms Are (Timing): Still Present Associated Symptoms: denies: Nausea, Vomiting, Diarrhea, Loss Of Appetite, Back Pain, Urinary Symptoms Alleviating Factors: None Recent travel outside of the [place]: No Additional History Per: Patient Past Medical History Reviewed: Historical Data, Nursing Documentation, Vital Signs Vital Signs: Last Vital Signs Temp 98.8 F 12/01/17 08:18 Pulse 97 H 12/01/17 08:18 Resp 18 12/01/17 08:18 BP 136/81 12/01/17 08:18 Pulse Ox 98 12/01/17 09:35 - Medical History PMH: Asthma, Diabetes, Gastritis, HTN Denies: Chronic Kidney Disease Family History: States: CAD, Diabetes, Hypertension - Social History Hx Tobacco Use: No Hx Alcohol Use: Yes (SOCIALLY) Hx Substance Use: No - Immunization History Hx Tetanus Toxoid Vaccination: Yes Hx Influenza Vaccination: No Hx Pneumococcal Vaccination: No Review Of Systems Except As Marked, All Systems Reviewed And Found Negative. Constitutional: Negative for: Fever, Chills Cardiovascular: Negative for: Chest Pain, Palpitations, Light Headedness Respiratory: Negative for: Shortness of Breath Gastrointestinal: Negative for: Nausea, Vomiting, Abdominal Pain Genitourinary: Positive for: Vaginal Bleeding. Negative for: Dysuria, Frequency , Vaginal Discharge Neurological: Negative for: Headache, Dizziness Physical Exam - Physical Exam Appears: Non-toxic, No Acute Distress Skin: Normal Color, Warm, Dry Head: Atraumatic, Normacephalic Eye(s): bilateral: Normal Inspection Oral Mucosa: Moist Cardiovascular: Rhythm Regular, No Murmur Respiratory: Normal Breath Sounds, No Rales, No Rhonchi, No Wheezing Gastrointestinal/Abdominal: Soft, No Tenderness Back: No CVA Tenderness Extremity: Normal ROM Neurological/Psych: Oriented x3, Normal Speech ED Course And Treatment O2 Sat by Pulse Oximetry: 98 (RA) Pulse Ox Interpretation: Normal Medical Decision Making Medical Decision Making: Plan: * Urinalysis * Reassess and dispo Disposition Counseled Patient/Family Regarding: Studies Performed, Diagnosis, Need For Followup - Disposition Referrals: YOUR,OBGYN [Other] Disposition: HOME/ ROUTINE Disposition Time: 10:14 Condition: GOOD Instructions: Dysfunctional Uterine Bleeding (ED) Forms: [employer] (Indonesian) - Clinical Impression Clinical Impression: DUB (dysfunctional uterine bleeding) - Scribe Statement The provider has reviewed the documentation as recorded by the Scribe Jerzy Rangel All medical record entries made by the Scribe were at my direction and personally dictated by me. I have reviewed the chart and agree that the record accurately reflects my personal performance of the history, physical exam, medical decision making, and the department course for this patient. I have also personally directed, reviewed, and agree with the discharge instructions and disposition.
[2017-12-01 10:01] LABS: SQUAMOUS EPITHIAL 3 /hpf (0-5); URINE BACTERIA RARE (<OCC); URINE BILIRUBIN NEGATIVE (NEGATIVE); URINE BLOOD 2+ (NEGATIVE); URINE CLARITY Clear (Clear); URINE COLOR Yellow (YELLOW); URINE GLUCOSE (UA) 1+ mg/dL (Normal); URINE LEUKOCYTE ESTERASE NEG Leu/uL (Negative); URINE NITRATE NEGATIVE (NEGATIVE); URINE PROTEIN 1+ mg/dL (NEGATIVE); URINE UROBILINOGEN NORMAL mg/dL (0.2-1.0)
[2017-12-01 10:34] VITALS: BP 128/80; PULSE 89; RESP 16; TEMP 97.7; O2SAT 97
== END 2017-12-01 10:34 | disposition home or self-care (01) ==
LOC: C.ER 08:07
DX: N93.8 Other specified abnormal uterine and vaginal bleeding (principal)

== ENCOUNTER 2018-07-03 12:39 | Emergency (ER) | payer MEDICAID ==
[2018-07-03 12:48] VITALS: BMI 37.8
[2018-07-03 12:50] VITALS: RESP 18; TEMP 98
[2018-07-03] MEDS ORDERED: Sodium Chloride 0.9% 1,000 ML IV ONE (13:52)
[2018-07-03] MEDS ORDERED: Sodium Chloride 0.9% 1,000 ML ONE (14:15)
[2018-07-03 14:35] LABS: BASO # 0.1 K/uL (0.0-0.2); BASO % 0.7 % (0.0-2.0); EOS # 0.1 K/uL (0.0-0.7); EOS % 1.3 % (0.0-4.0); LYMPH # 1.4 K/uL (1.0-4.3); LYMPH % 14.7 % (20.0-40.0); MEAN CELL VOLUME 74.8 fL (81.0-99.0); MEAN CORPUSCULAR HEMOGLOBIN 24.2 pg (27.0-31.0); MEAN CORPUSCULAR HGB CONC 32.4 g/dL (33.0-37.0); MEAN PLATELET VOLUME 8.6 fL (7.2-11.7); MONO # 0.7 K/uL (0.0-0.8); MONO % 7.6 % (0.0-10.0); NEUT # 7.1 K/uL (1.8-7.0); NEUT % 75.7 % (50.0-75.0); NRBC % 0.1 % (0.0-2.0); RBC 4.53 Mil/uL (3.80-5.20); RED CELL DISTRIBUTION WIDTH 17.3 % (11.5-14.5); WHITE BLOOD COUNT 9.4 K/uL (4.8-10.8)
[2018-07-03 16:02] LABS: HCG,QUALITATIVE URINE NEGATIVE (NEGATIVE)
[2018-07-03 16:15] LABS: URINE BILIRUBIN NEGATIVE (NEGATIVE); URINE BLOOD NEGATIVE (NEGATIVE); URINE CLARITY Hazy (Clear); URINE COLOR Yellow (YELLOW); URINE GLUCOSE (UA) 1+ mg/dL (Normal); URINE LEUKOCYTE ESTERASE NEG Leu/uL (Negative); URINE PROTEIN NEGATIVE (NEGATIVE)
[2018-07-03 16:21] LABS: ALB/GLOB RATIO 1.2 (1.0-2.1); ALBUMIN 3.5 g/dL (3.5-5.0); ALT/SGPT 25 U/L (9-52); AST/SGOT 25 U/L (14-36); BLOOD UREA NITROGEN 10 mg/dL (7-17); CALCIUM 8.5 mg/dl (8.6-10.4); GFR AFRICAN-AMERICAN > 60; GFR NON-AFRICAN AMERICAN > 60; LIPASE 62 U/L (23-300)
[2018-07-03 18:04] VITALS: BP 115/84; PULSE 84; O2SAT 100
--- NOTE | 2018-07-03 18:31 | US ---
Date of service: 07/03/2018 HISTORY: Pelvic pain COMPARISON: None available. TECHNIQUE: Transabdominal and endovaginal ultrasound examination of the pelvis was obtained. FINDINGS: UTERUS: Measures 11.1 x 7.6 x 8 cm. Heterogeneous echotexture of the uterus is noted. There are large fibroids seen in the uterus. There is partially calcified fundal fibroid measures 5.7 x 5.5 x 6 centimeter. There is also calcified posterior fibroid measures 3.8 x 3.5 x 4.1 ENDOMETRIUM: The endometrium is not clearly visualized due to distortion of the uterine echotexture by large fibroids. . CERVIX: No cervical abnormality identified. RIGHT OVARY: Measures 3 x 2.3 x 2.4 cm. No solid mass. Normal flow. LEFT OVARY: The left ovary was not visualized. FREE FLUID: No significant free fluid noted. OTHER FINDINGS: None. IMPRESSION: Heterogeneous uterus contains large calcified fibroids. The endometrium is not clearly visualized in this study. The left ovary was not visualized.
--- NOTE | 2018-07-03 18:49 | C.PDOC ---
Time Seen by Provider: 07/03/18 13:17 Chief Complaint (Nursing): Abdominal Pain History Per: Patient Onset/Duration Of Symptoms: Days (1) Current Symptoms Are (Timing): Still Present Severity: Moderate Location Of Pain/Discomfort: Suprapubic Quality Of Discomfort: "Pain" Exacerbating Factors: None Alleviating Factors: None Additional History Per: Prior Records Past Medical History Reviewed: Historical Data, Nursing Documentation, Vital Signs Vital Signs: Last Vital Signs Temp 98 F 07/03/18 12:47 Pulse 84 07/03/18 18:03 Resp 18 07/03/18 18:03 BP 115/84 07/03/18 18:03 Pulse Ox 100 07/03/18 18:03 - Medical History PMH: Asthma, Diabetes, Gastritis, HTN Family History: States: CAD, Diabetes, Hypertension - Social History Hx Tobacco Use: No Hx Alcohol Use: Yes (SOCIALLY) Hx Substance Use: No - Immunization History Hx Tetanus Toxoid Vaccination: Yes Hx Influenza Vaccination: No Hx Pneumococcal Vaccination: No Review Of Systems Except As Marked, All Systems Reviewed And Found Negative. Constitutional: Negative for: Fever, Weakness Cardiovascular: Negative for: Chest Pain Respiratory: Negative for: Shortness of Breath Gastrointestinal: Negative for: Vomiting, Diarrhea Genitourinary: Positive for: Pelvic Pain. Negative for: Dysuria, Vaginal Discharge Musculoskeletal: Negative for: Neck Pain Skin: Negative for: Rash Neurological: Negative for: Weakness, Numbness Physical Exam - Physical Exam Appears: Non-toxic, No Acute Distress Skin: Normal Color, Warm, Dry, No Rash Head: Atraumatic, Normacephalic Eye(s): bilateral: Normal Inspection, PERRL, EOMI Neck: Normal ROM, Supple Cardiovascular: Rhythm Regular Respiratory: Normal Breath Sounds, No Accessory Muscle Use Gastrointestinal/Abdominal: Soft, Tenderness (mild suprapubic), No Guarding, No Rebound Back: No CVA Tenderness Extremity: Normal ROM Neurological/Psych: Oriented x3, Normal Motor, Normal Sensation ED Course And Treatment - Laboratory Results Result Diagrams: 07/03/18 14:32 07/03/18 15:45 Lab Interpretation: No Acute Changes Urine POC: Negative O2 Sat by Pulse Oximetry: 100 Pulse Ox Interpretation: Normal - CT Scan/US Pelvic US Other Rad Studies (CT/US): Read By Radiologist, Radiology Report Reviewed CT/US Interpretation: IMPRESSION: Heterogeneous uterus contains large calcified fibroids. The endometrium is not clearly visualized in this study. The left ovary was not visualized. Reassessment Condition: Improved Progress - Interventions Interventions:: Observation, Intravenous fluid - Medications Administered Intravenous: NSAID - Data Reviewed Data Reviewed: Lab, Diagnostic imaging, Old records - Patient Status Patient status: Mostly improved - Continuity of Care Discussed patient case with:: Patient, ED Nurse - Patient Plan Patient Plan: Discharge, F/U with PCP, Continue present meds Disposition Counseled Patient/Family Regarding: Studies Performed, Diagnosis, Need For Followup, Rx Given - Disposition Disposition: HOME/ ROUTINE Disposition Time: 18:50 Condition: IMPROVED Additional Instructions: Follow up with your Cottage Parent for further evaluation and treatment. Return to the ER if you develop fever, vomiting, vaginal discharge, worsening of symptoms or if you have any other concerns. Prescriptions: Naproxen [Naprosyn] 1 tab PO BID PRN #20 tab PRN Reason: Pain Instructions: Uterine Fibroids (DC) Forms: [employer] (Croatian) - Clinical Impression Clinical Impression: Fibroids, Pelvic pain
== END 2018-07-03 18:58 | disposition home or self-care (01) ==
LOC: C.ER 12:39
DX: D25.9 Leiomyoma of uterus, unspecified (principal); R10.2 Pelvic and perineal pain
CPT/HCPCS: 76830; 76856; 80053; 81001; 83690; 84703; 85025; 96361; 96374; 96375; 99285; J1885; J2405; J7030

== ENCOUNTER 2018-12-28 08:29 | Emergency (ER) | payer MEDICAID ==
[2018-12-28 08:29] VITALS: BMI 37.1
[2018-12-28 08:51] VITALS: RESP 20; TEMP 98.5; O2SAT 99
--- NOTE | 2018-12-28 09:31 | C.PDOC ---
History Of Present Illness Patient is a 48 yr old female c/o cough, nasal congestion and some dizziness. Pt states she woke up like this yesterday morning. Pt thinks she had a fever yesterday and also had some chills. Pt did not get the flu shot this season. 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 Pt took some cough syrup yesterday and it did help bring up some of the phlegm. PMD: Manpreet Gary / Time Seen by Provider: 12/28/18 09:03 Chief Complaint (Nursing): Cough, Cold, Congestion History Per: Patient Onset/Duration Of Symptoms: Days Current Symptoms Are (Timing): Still Present Sick Contacts (Context): Individual(s) At Work Associated Symptoms: Fever, Chills, Cough, Nasal Congestion Ear Symptoms: Bilateral: None Past Medical History Reviewed: Historical Data, Nursing Documentation, Vital Signs Vital Signs: Last Vital Signs Temp 98.5 F 12/28/18 08:42 Pulse 107 H 12/28/18 08:42 Resp 20 12/28/18 08:42 BP 115/79 12/28/18 08:42 Pulse Ox 99 12/28/18 08:42 JONATHAN Report Viewed: No - Medical History PMH: Asthma, Diabetes, Gastritis Surgical History: No Surg Hx Family History: States: CAD, Diabetes, Hypertension - Social History Hx Tobacco Use: No Hx Alcohol Use: No (SOCIALLY) Hx Substance Use: No - Immunization History Hx Tetanus Toxoid Vaccination: Yes Hx Influenza Vaccination: No Hx Pneumococcal Vaccination: No Review Of Systems Except As Marked, All Systems Reviewed And Found Negative. Constitutional: Positive for: Fever, Chills ENT: Positive for: Nose Congestion. Negative for: Ear Pain, Throat Pain Respiratory: Positive for: Cough. Negative for: Shortness of Breath Gastrointestinal: Negative for: Nausea, Vomiting, Abdominal Pain, Diarrhea Neurological: Positive for: Dizziness ED Course And Treatment O2 Sat by Pulse Oximetry: 99 (RA) Pulse Ox Interpretation: Normal Disposition Counseled Patient/Family Regarding: Diagnosis, Need For Followup, Rx Given - Disposition Referrals: Manpreet Gary, VICTORIANO, GEOLOGIST [Advanced Practice Nurse] - Disposition: HOME/ ROUTINE Disposition Time: 09:35 Condition: STABLE Additional Instructions: Ms. Batres, thank you for letting us take care of you today. Take the medication listed below as prescribed. Follow up with Manpreet Gary in 1 to 2 days for a re-evaluation. Return to the ER if your symptoms worsen, or if any problems. / Prescriptions: Ibuprofen [Motrin Tab] 1 tab PO TID PRN #30 tab PRN Reason: Pain, Moderate (4-7) Loratadine [Claritin] 1 tab PO DAILY #30 tab Oseltamivir Phosphate [Tamiflu] 1 tab PO BID #10 capsule Pseudoephedrine HCl [Sudafed] 1 tab PO Q4 #30 tablet Instructions: Flu, Adult (DC) Forms: [employer] (Luxembourgish) Print Language: PALAUAN - POA Present On Arrival: None - Clinical Impression Clinical Impression: Influenza-like illness
[2018-12-28 09:46] VITALS: BP 110/70; PULSE 89
== END 2018-12-28 09:47 | disposition home or self-care (01) ==
LOC: C.ER 08:29
DX: J11.1 Influenza due to unidentified influenza virus with other respiratory manifestations (principal); Z87.891 Personal history of nicotine dependence

== ENCOUNTER 2019-03-27 14:49 | Emergency (ER) | payer MEDICAID ==
[2019-03-27 14:50] VITALS: BMI 37.1
[2019-03-27 14:58] VITALS: TEMP 98.2
--- NOTE | 2019-03-27 15:23 | C.PDOC ---
History Of Present Illness Patient is a 49yo F with PMH HTN, DM2, asthma, cervical and lumbar disc herniations comes to the ED today complaining of intermittent L sided chest pain radiating up her chest to her L neck. Associated difficulty on deep inspiration. She denies any heavy lifting recently, but does go shopping on a regular basis with grabbing things off top shelf. Moving her arm, especially with resistance can reproduce the pain; rest alleviates the pain. She also complains of bilateral lateral thigh pain where she injects her insulin and Charley horses in both calves every night. Denies any palpitations, dizziness, nausea, vomiting, diarrhea, dizziness, weakness, numbness, tingling. Quit smoking 10+ years ago. <Jannet Jordan - Last Filed: 03/27/19 17:59> History Per: Patient Onset/Duration Of Symptoms: Hrs Current Symptoms Are (Timing): Still Present Quality: "Pain" Associated Symptoms: denies: Nausea Exacerbating Factors: Deep Breathing Alleviating Factors: Rest <Jannet Jordan - Last Filed: 03/27/19 17:59> <Jovita Pitts - Last Filed: 03/27/19 23:17> Chief Complaint (Nursing): Chest Pain Past Medical History Reviewed: Historical Data, Nursing Documentation, Vital Signs Vital Signs: Last Vital Signs Temp 98.2 F 03/27/19 14:53 Pulse 95 H 03/27/19 14:53 Resp 22 03/27/19 14:53 BP 139/87 03/27/19 14:53 Pulse Ox 99 03/27/19 14:53 - Medical History PMH: Asthma, Diabetes, Gastritis, HTN Family History: States: CAD, Diabetes, Hypertension - Social History Hx Tobacco Use: No Hx Alcohol Use: Yes (SOCIALLY) Hx Substance Use: No - Immunization History Hx Tetanus Toxoid Vaccination: Yes Hx Influenza Vaccination: No Hx Pneumococcal Vaccination: No <Jannet Jordan - Last Filed: 03/27/19 17:59> Vital Signs: Last Vital Signs Temp 98.2 F 03/27/19 14:53 Pulse 92 H 03/27/19 17:00 Resp 16 03/27/19 17:00 BP 110/65 03/27/19 17:00 Pulse Ox 99 03/27/19 18:00 <Jovita Pitts - Last Filed: 03/27/19 23:17> Review Of Systems Constitutional: Negative for: Fever, Chills, Sweats, Weakness Eyes: Negative for: Vision Change Cardiovascular: Negative for: Chest Pain, Palpitations, Edema Respiratory: Positive for: Shortness of Breath, Pleuritic Pain. Negative for: Cough, Wheezing Gastrointestinal: Negative for: Nausea, Vomiting, Abdominal Pain, Diarrhea, Constipation, Melena, Hematochezia Genitourinary: Negative for: Dysuria, Frequency, Incontinence Musculoskeletal: Positive for: Neck Pain, Leg Pain. Negative for: Shoulder Pain, Arm Pain, Back Pain Skin: Positive for: Bruising. Negative for: Rash Neurological: Negative for: Weakness, Numbness, Incoordination, Confusion, Altered Mental Status, Dizziness <Mariann Jordanberly Y - Last Filed: 03/27/19 17:59> Physical Exam - Physical Exam Appears: Well, No Acute Distress Skin: Normal Color, Warm, Dry Head: Atraumatic, Normacephalic Eye(s): bilateral: PERRL (normal accomodation), EOMI Oral Mucosa: Moist Neck: Normal ROM, Trachea Midline, No Midline Cervical Tenderness, No Step Off Deformity Chest: Symmetrical, No Deformity, Tenderness (TTP to anterior L rib 3, radiating up to lower L neck), No Ecchymosis Cardiovascular: Rhythm Regular, No Edema, No Murmur, No JVD Respiratory: Normal Breath Sounds, Decreased Breath Sounds, No Accessory Muscle Use, No Rales, No Rhonchi, No Stridor, No Wheezing Gastrointestinal/Abdominal: Bowel Sounds (normoactive), Soft, No Tenderness, Distention, No Guarding, No Rebound, Other (morbidly obese) Back: Normal Inspection, No CVA Tenderness Extremity: Normal ROM, Tenderness (TTP on bilateral thighs with dark discoloration over insulin injection sites), No Pedal Edema, No Calf Tenderness (Manuel's negative), Capillary Refill (< 2sec), No Swelling Extremity: Bilateral: Atraumatic Pulses: Left Radial: Normal, Right Radial: Normal, Left Dorsalis Pedis: Normal, Right Dorsalis Pedis: Normal DTR: Bicep (R): 2+, Bicep (L): 2+, Knee (R): 2+, Knee (L): 2+ Neurological/Psych: Oriented x3, Normal Speech, Normal Cognition, Normal Cranial Nerves, Normal Motor, Normal Sensation, Normal Reflexes <Mariann Jordanberly Y - Last Filed: 03/27/19 17:59> ED Course And Treatment - Laboratory Results Result Diagrams: 03/27/19 15:42 03/27/19 15:42 ECG: Interpreted By Me, Viewed By Me ECG Rhythm: Sinus Rhythm ECG Interpretation: Normal Interpretation Of ECG: NSR@96 without STTwave changes Rate From EC O2 Sat by Pulse Oximetry: 99 Pulse Ox Interpretation: Normal <Keira Jordanly Deb - Last Filed: 03/27/19 17:59> - Laboratory Results Result Diagrams: 03/27/19 15:42 03/27/19 15:42 Lab Results: Troponin I < 0.0120 ng/mL (0.00-0.120) 03/27/19 17:15 NT-Pro-B Natriuret Pep 63.1 pg/mL (0-450) 03/27/19 15:42 Total Bilirubin 0.3 mg/dL (0.2-1.3) 03/27/19 15:42 AST 29 U/L (14-36) 03/27/19 15:42 ALT 30 U/L (9-52) 03/27/19 15:42 Alkaline Phosphatase 104 U/L (38-126) 03/27/19 15:42 Total Protein 7.8 g/dL (6.3-8.3) 03/27/19 15:42 Albumin 4.3 g/dL (3.5-5.0) 03/27/19 15:42 Globulin 3.5 gm/dL (2.2-3.9) 03/27/19 15:42 Albumin/Globulin Ratio 1.3 (1.0-2.1) 03/27/19 15:42 Urine Color Yellow (YELLOW) 03/27/19 15:59 Urine Clarity Clear (Clear) 03/27/19 15:59 Urine pH 5.0 (5.0-8.0) 03/27/19 15:59 Ur Specific [place] 1.018 (1.003-1.030) 03/27/19 15:59 Urine Protein Negative mg/dL (NEGATIVE) 03/27/19 15:59 Urine Glucose (UA) Normal mg/dL (Normal) 03/27/19 15:59 Urine Ketones Negative mg/dL (NEGATIVE) 03/27/19 15:59 Urine Blood Negative (NEGATIVE) 03/27/19 15:59 Urine Nitrate Negative (NEGATIVE) 03/27/19 15:59 Urine Bilirubin Negative (NEGATIVE) 03/27/19 15:59 Urine Urobilinogen Normal mg/dL (0.2-1.0) 03/27/19 15:59 Ur Leukocyte Esterase Neg Bradley/uL (Negative) 03/27/19 15:59 Urine RBC (Auto) < 1 /hpf (0-3) 03/27/19 15:59 Ur Squamous Epith Cells 3 /hpf (0-5) 03/27/19 15:59 <Jovita Pitts - Last Filed: 03/27/19 23:17> Medical Decision Making Medical Decision Making: - labs - CXR: no active pulmonary disease - EKG - BNP - UA - PO ASA 325mg - Trop x2 negative 1600 re-eval. patient is resting comfortably in bed, playing on phone using affected side. she reports no pain since she is at rest. <Jannet Jordan Y - Last Filed: 03/27/19 17:59> Disposition - Disposition Disposition Time: 17:59 <Jannet Jordan - Last Filed: 03/27/19 17:59> <Jovita Pitts - Last Filed: 03/27/19 23:17> - Disposition Disposition: HOME/ ROUTINE Condition: IMPROVED Additional Instructions: Rest your arm and do not overuse it if you need to move. Please rotate where you inject your insulin. You should rotate where you inject over at least 4 different spots to prevent the discoloration and callusing you are experiencing. Please follow up with your PMD as you have been. Return to the ED if symptoms return or worsen. Instructions: Insulin Injection, Chest Pain (DC) Forms: [facility] (Czech) - Clinical Impression Clinical Impression: Chest discomfort, Muscle strain of anterior chest wall - PA / CURATORIAL ASSISTANT / Resident Statement / has reviewed & agrees with the documentation as recorded. / has examined the patient and agrees with the treatment plan. <Jannet Jordan - Last Filed: 03/27/19 17:59> - PA / CURATORIAL ASSISTANT / Resident Statement MD/DO has examined the patient and agrees with the treatment plan. <Jovita Pitts - Last Filed: 03/27/19 23:17>
--- NOTE | 2019-03-27 15:51 | RAD ---
Date of service: 03/27/2019 HISTORY: Chest pain COMPARISON: 03/22/2017. FINDINGS: LUNGS: The lungs are well inflated and clear. PLEURA: No pleural effusions or pneumothorax. CARDIOVASCULAR: The heart is normal in size. No aortic atherosclerotic calcifications present. OSSEOUS STRUCTURES: Within normal limits for the patient's age. VISUALIZED UPPER ABDOMEN: Normal. OTHER FINDINGS: None. IMPRESSION: No active pulmonary disease.
[2019-03-27 15:55] LABS: BASO # 0.1 K/uL (0.0-0.2); BASO % 0.8 % (0.0-2.0); EOS # 0.2 K/uL (0.0-0.7); EOS % 2.5 % (0.0-4.0); HEMOGLOBIN 12.4 g/dL (11.0-16.0); LYMPH # 1.6 K/uL (1.0-4.3); LYMPH % 21.3 % (20.0-40.0); MEAN CORPUSCULAR HEMOGLOBIN 25.7 pg (27.0-31.0); MEAN CORPUSCULAR HGB CONC 32.4 g/dL (33.0-37.0); MEAN PLATELET VOLUME 8.8 fL (7.2-11.7); MONO # 0.7 K/uL (0.0-0.8); MONO % 9.1 % (0.0-10.0); NEUT % 66.3 % (50.0-75.0); RBC 4.82 Mil/uL (3.80-5.20); RED CELL DISTRIBUTION WIDTH 16.6 % (11.5-14.5); WHITE BLOOD COUNT 7.5 K/uL (4.8-10.8)
[2019-03-27 15:58] LABS: MEAN CELL VOLUME 79.3 fL (81.0-99.0)
[2019-03-27 15:59] LABS: ALB/GLOB RATIO 1.3 (1.0-2.1); ALBUMIN 4.3 g/dL (3.5-5.0); ALT/SGPT 30 U/L (9-52); AST/SGOT 29 U/L (14-36); BLOOD UREA NITROGEN 10 mg/dL (7-17); CALCIUM 9.1 mg/dl (8.6-10.4); GFR NON-AFRICAN AMERICAN > 60
[2019-03-27 16:07] LABS: SQUAMOUS EPITHIAL 3 /hpf (0-5); URINE BILIRUBIN NEGATIVE (NEGATIVE); URINE BLOOD NEGATIVE (NEGATIVE); URINE CLARITY Clear (Clear); URINE COLOR Yellow (YELLOW); URINE GLUCOSE (UA) NORMAL (Normal); URINE LEUKOCYTE ESTERASE NEG Leu/uL (Negative); URINE PROTEIN NEGATIVE (NEGATIVE); URINE UROBILINOGEN NORMAL mg/dL (0.2-1.0)
[2019-03-27 16:10] LABS: B-TYPE NATRIURETIC PEPTIDE 63.1 pg/mL (0-450)
[2019-03-27 17:01] VITALS: BP 110/65; PULSE 92; RESP 16
[2019-03-27 18:01] VITALS: O2SAT 99
--- NOTE | 2019-03-31 19:47 | CARD ---
APPROVED REPORT Date of service: 03/27/2019 EKG Measurement Heart [id number] <Conclusion> Normal sinus rhythm Low voltage QRS Left anterior fascicular block Possible Anterolateral infarct, age undetermined Abnormal ECG
== END 2019-03-27 18:39 | disposition home or self-care (01) ==
LOC: C.ER 14:49
DX: S29.011A Strain of muscle and tendon of front wall of thorax, initial encounter (principal); X58.XXXA Exposure to other specified factors, initial encounter; R07.89 Other chest pain